=== PATIENT | male | born 1990 ===

== ENCOUNTER 2016-12-08 22:35 | Emergency (ER) | payer OTHER ==
[2016-12-08 22:42] VITALS: RESP 16
[2016-12-08] MEDS ORDERED: ONDANSETRON 4 MG/2 ML VIAL ONE (23:26)
--- NOTE | 2016-12-08 23:31 | EDPHY ---
H & P Stated Complaint: BUENO, fever, fatigue since this morning HPI/ROS: CHIEF COMPLAINT: Flu-like symptoms HISTORY OF PRESENT ILLNESS: Patient complains sudden onset of nausea work this morning. This was followed by some headache, malaise, myalgia and vomiting. He also had some chest pain with this. Symptoms were moderate to severe throughout the day. No improvement with oral antacids or ibuprofen. This time he has no chest pain but he does have persistent myalgia, malaise and nausea. Headache is minimal. He has no neck pain or stiffness. He is concerned because he just returned from [facility] and has multiple insect bites to the lower extremities. These have become pruritic. There is minimal redness around them. He is concerned regarding yellow fever and "other things from there." No other associated complaints or modifying factors. REVIEW OF SYSTEMS: Ten systems reviewed and are negative unless otherwise noted in the HPI PERTINENT MEDICAL HISTORY: None EXAMINATION General Appearance: Alert, no distress Head: normocephalic, atraumatic Eyes: Pupils equal and round, no conjunctival pallor or injection ENT, Mouth: Mucous membranes moist. Uvula or edema Neck: Normal inspection, supple, non-tender. No rigidity or meningismus. Painless range of motion all planes. Respiratory: Lungs are clear to auscultation. No wheezing, rhonchi or crackles. Cardiovascular: Regular rate and rhythm. No murmur. Pulses intact distally. Gastrointestinal: Abdomen is soft and nontender. No hepatosplenomegaly. No tympany. No rigidity. No distention. No guarding. Back: non-tender, no bony abnormalities Neurological: GCS 15. A&O, nonfocal, normal gait. Strength symmetric in all 4 limbs. Skin: Warm and dry, no rash. No petechiae. No purpura. Extremities: Nontender, no pedal edema Psychiatric: Mood and affect normal DIFFERENTIAL DIAGNOSES: Including but not limited to viral illness, pneumonia, influenza, dehydration, electrolyte disturbance, weakness MDM: 11:28 p.m. Nausea, vomiting, chest pain, malaise, myalgia, headache with recent trip to [facility]. No diarrhea. No abdominal pain at this time. He does also have multiple areas of insect bite to the lower extremities with some pruritus and excoriations. Vital signs reveal some mild tachycardia. He is afebrile. He is not tachypneic. Laboratory studies, IV fluid resuscitation, Zofran. 12:30 a.m. Laboratory studies unremarkable. EKG reveals sinus rhythm without ischemia. Chest x-ray as read by the radiologist as unremarkable. He is resting comfortably with normal vital signs at this time. I suspected this is a viral etiology. Continue IV fluid resuscitation recheck. 12:59 a.m. Influenza test is still pending. I have re-evaluated the patient at this time. He is feeling better since time arrival. 1:15 a.m. Influenza test is negative. I have re-evaluated him. He is feeling better. He has not vomited since the IV Zofran. He is receive IV fluid resuscitation. Vital signs remained stable. No meningismus. Minimal headache. I suspected this is a viral etiology. We discussed discharge home with antiemetics, increase fluid intake, increase rest. We also discussed follow-up primary care physician the [facility] next week for further workup. He is to return to ER for any change in his symptoms, any neck pain or stiffness , chest pain, shortness of breath, intolerance of intake by mouth, persistent fever. He is comfortable this plan and discharged home in stable condition. SUPERVISION: This patient was independently evaluated without direct examination by the attending physician. Case was discussed with attending physician. Case discussed with Dr. Ross Source: Patient Exam Limitations: No limitations - Personal History Current Tetanus/Diphtheria Vaccine: Yes Current Tetanus Diphtheria and Acellular Pertussis (TDAP): Yes Tetanus Vaccine Date: 2016 - Medical/Surgical History Hx Asthma: No Hx Chronic Respiratory Disease: No Hx Diabetes: No Hx Cardiac Disease: No Hx Renal Disease: No Hx Cirrhosis: No Hx Alcoholism: No Hx HIV/AIDS: No Hx Splenectomy or Spleen Trauma: No Other PMH: denies - Social History Smoking Status: Never smoked Constitutional: Initial Vital Signs Temperature (C) 99.1 F 12/08/16 22:37 Heart Rate 102 H 12/08/16 22:37 Respiratory Rate 16 12/08/16 22:37 Blood Pressure 126/70 H 12/08/16 22:37 O2 Sat (%) 96 12/08/16 22:37 O2 Delivery Mode Room Air Allergies/Adverse Reactions: No Known Allergies Allergy (Unverified 12/08/16 22:42) Home Medications: Medication Instructions Recorded Ondansetron Odt [Zofran Odt 4 mg 4 mg PO Q6 PRN #12 tab 12/09/16 (*)] Promethazine HCl [Phenergan 25mg 25 mg PO Q8 PRN #12 tab 12/09/16 (*)] Medical Decision Making - Data Points Laboratory Results: Laboratory Results 12/08/16 23:38 12/08/16 23:38 Medications Given: Discontinued Medications Sodium Chloride (Ns) 1,000 mls @ 0 mls/hr IV ONCE ONE PRN Reason: Wide Open Stop: 12/09/16 00:11 Last Admin: 12/08/16 23:38 Dose: 1,000 mls Sodium Chloride (Ns) 1,000 mls @ 0 mls/hr IV ONCE ONE PRN Reason: Wide Open Stop: 12/09/16 00:14 Last Admin: 12/09/16 00:12 Dose: 1,000 mls Ondansetron HCl (Zofran) 8 mg IVP EDNOW ONE Stop: 12/09/16 00:11 Last Admin: 12/08/16 23:38 Dose: 8 mg Ondansetron HCl (Zofran Odt 4 Mg Prepack#2) 1 btl TAKEHOME EDNOW ONE Stop: 12/09/16 01:26 Last Admin: 12/09/16 01:26 Dose: 1 btl Departure - Departure Disposition: Home, Routine, Self-Care Clinical Impression: Myalgia Nausea & vomiting Qualifiers: Vomiting type: unspecified Vomiting Intractability: non-intractable Qualified Code(s): R11.2 - Nausea with vomiting, unspecified Insect bites and stings Qualifiers: Encounter type: initial encounter Injury intent: accidental or unintentional Qualified Code(s): T63.481A - Toxic effect of venom of other arthropod, accidental (unintentional), initial encounter Condition: Good Instructions: Ondansetron (By mouth), Hemorrhagic Fevers (ED), Viral Syndrome ( ED) Additional Instructions: Increased fluid intake. Rest. Increase caloric intake. Return to the ER for any change in the headache. Return to ER for any neck pain or stiffness at any time. Return here for persistent fever, vomiting, difficulty keeping liquids down or any chest pain. Follow up with primary care physician for further care. Referrals: Kristopher Canseco MD [Primary Care Provider] - As per Instructions [facility] (ED,. [Edm Groups for Call Sched] - As per Instructions Prescriptions: Ondansetron Odt [Zofran Odt 4 mg (*)] 4 mg PO Q6 PRN #12 tab PRN Reason: Nausea/Vomiting, Use 1st Promethazine HCl [Phenergan 25mg (*)] 25 mg PO Q8 PRN #12 tab PRN Reason: Nausea/Vomiting, Use 1st
[2016-12-08 23:56] LABS: % IMMATURE GRANULYOCYTES 0.3 % (0.0-1.1); ABSOLUTE IMMATURE GRANULOCYTES 0.02 10^3/uL (0.00-0.10); ADD DIFF? NO; ADD MORPH? NO; ADD SCAN? NO; ATYPICAL LYMPHOCYTE FLAG 70 (0-99); FRAGMENT RBC FLAG 10 (0-99); HEMOGLOBIN 16.3 g/dL (13.7-17.5); LEFT SHIFT FLG 0 (0-99); LIPEMIA HEMOLYSIS FLAG 90 (0-99); MEAN CELL HEMOGLOBIN 32.3 pg (27.9-34.1); MEAN CELL HEMOGLOBIN CONCENTR. 36.2 g/dL (32.4-36.7); MEAN CELL VOLUME 89.1 fL (81.5-99.8); PLATELET CLUMPS FLAG 10 (0-99); PLATELET COUNT 174 10^3/uL (150-400); RED BLOOD CELL COUNT 5.05 10^6/uL (4.40-6.38); RED CELL DISTRIBUTION WIDTH 12.5 % (11.5-15.2)
[2016-12-09 00:05] LABS: SEDIMENTATION RATE 8 MM/HR (0-15)
--- NOTE | 2016-12-09 00:05 | CPEKG ---
Heart Rate: 86 RR Interval: 698 P-R Interval: 192 QRSD Interval: 88 QT Interval: 348 QTC Interval: 417 P Olmitz: 61 QRS Olmitz: 57 T Wave Olmitz: 73 EKG Severity - NORMAL ECG - EKG Impression: SINUS RHYTHM Electronically Signed By: Belinda Javier 11-Dec-2016 17:25:17
[2016-12-09 00:07] LABS: ALANINE AMINOTRANSFERASE 30 IU/L (21-72); ALBUMIN 4.4 g/dL (3.5-5.0); ALKALINE PHOSPHATASE 82 IU/L (38-126); ANION GAP 12 mEq/L (8-16); ASPARTATE AMINOTRANSFERASE 23 IU/L (17-59); BILIRUBIN,TOTAL 0.8 mg/dL (0.1-1.4); BILIRUBIN-CONJUGATED 0.3 mg/dL (0.0-0.5); BILIRUBIN-UNCONJUGATED 0.5 mg/dL (0.0-1.1); C-REACTIVE PROTEIN 22.3 mg/L (<10.0); CARBON DIOXIDE 25 mEq/l (22-31); CHLORIDE 102 mEq/L (97-110); CREATININE 0.9 mg/dL (0.7-1.3); GLOMERULAR FILTRATION RATE > 60; GLUCOSE 100 mg/dL (70-100); POTASSIUM 3.6 mEq/L (3.5-5.2); SODIUM 139 mEq/L (134-144); TOTAL PROTEIN 7.7 g/dL (6.3-8.2)
[2016-12-09] MEDS ORDERED: NS 1,000 ML IV ONE ×2 (00:10→00:13)
[2016-12-09] MEDS ORDERED: ONDANSETRON 4 MG/2 ML VIAL IVP ONE (00:10)
[2016-12-09 00:20] LABS: TROPONIN I < 0.012 ng/mL (0-0.034)
[2016-12-09 00:52] VITALS: BP 104/52; PULSE 88; TEMP 98.4; O2SAT 93
[2016-12-09] MEDS ORDERED: ONDANSETRON 4MG PREPACK#2 BTL TAKEHOME ONE (01:25)
== END 2016-12-09 01:42 | disposition home or self-care (01) ==
DX: M79.1 Myalgia (principal); R11.2 Nausea with vomiting, unspecified; T63.481A Toxic effect of venom of other arthropod, accidental (unintentional), initial encounter
CPT/HCPCS: 96374; J2405